=== PATIENT | female | born 1990 | race Caucasian/White ===

== ENCOUNTER → 2021-03-08 | Outpatient (CLI) | payer OTHER ==
[~2021-03-08] MED LIST: CYSTO-CONRAY II 17.2% 250ML VIAL (Q9958) As Ordered ONE
--- NOTE | 2021-03-08 17:01 | REP ---
INDICATION: Urethral cyst COMPARISON: None TECHNIQUE: Exam deferred. See below. FINDINGS: None IMPRESSION: Patient has a history of a 1.5 x 1.5 cm mildly mobile cyst midline at the urethra. The patient arrives today stating that the cyst either popped or, otherwise, went away last . Her symptoms of pain also went away. She felt she no longer needed the exam and, given that the cyst and her symptoms had gone away, we agreed there was no need to perform the exam. <Electronically signed by Prakash Servin > 03/08/21 1512 <Electronically signed by Alonso Rogers > 03/08/21 7522
== END ==
LOC: M RADPRO 14:15
PROVIDERS: ATTEND Registered Nurse Maternal Newborn
DX: N36.8 Other specified disorders of urethra (principal); Z53.8 Procedure and treatment not carried out for other reasons